=== PATIENT | female | born 1945 ===

== ENCOUNTER 2017-02-20 12:47 | Emergency (ER) | payer MEDICARE, MEDICAID ==
[2017-02-20 12:47] VITALS: BMI 29.2
[2017-02-20 13:07] VITALS: RESP 18; TEMP 98.3
--- NOTE | 2017-02-20 13:40 | C.PDOC ---
History Of Present Illness 71 yr old female presents to the ER accompanied by daughter, with complaints of left knee pain over the past 1 week and several days of swelling in the left calf. Daughter states the swelling has extended down to the ankle and is associated with pain. Pain is worsened with walking. Denies trauma, chest pain, SOB, weakness or numbness. Time Seen by Provider: 02/20/17 13:24 Chief Complaint (Nursing): Lower Extremity Problem/Injury History Per: Patient History/Exam Limitations: no limitations Onset/Duration Of Symptoms: Days Current Symptoms Are (Timing): Still Present Recent travel outside of the [place]: No Past Medical History Reviewed: Historical Data, Nursing Documentation, Vital Signs Vital Signs: Last Vital Signs Temp 98.3 F 02/20/17 14:51 Pulse 78 02/20/17 14:51 Resp 18 02/20/17 14:51 BP 128/80 02/20/17 14:51 Pulse Ox 95 02/20/17 15:39 - Medical History PMH: Asthma, Diabetes, HTN, Kidney Stones Surgical History: Appendectomy, Cholecystectomy Family History: States: No Known Family Hx - Social History Hx Tobacco Use: No Hx Alcohol Use: No Hx Substance Use: No - Immunization History Hx Tetanus Toxoid Vaccination: No Hx Influenza Vaccination: No Hx Pneumococcal Vaccination: No Review Of Systems Except As Marked, All Systems Reviewed And Found Negative. Cardiovascular: Negative for: Chest Pain Respiratory: Negative for: Shortness of Breath Musculoskeletal: Positive for: Other ((+) Left knee pain. Left calf swelling. ) Neurological: Negative for: Weakness, Numbness Physical Exam - Physical Exam Appears: Non-toxic, No Acute Distress Skin: Warm, Dry, No Rash Head: Atraumatic, Normacephalic Eye(s): bilateral: Normal Inspection, PERRL, EOMI Oral Mucosa: Moist Chest: Symmetrical, No Tenderness Cardiovascular: Rhythm Regular, No Murmur Respiratory: Normal Breath Sounds, No Rales, No Rhonchi, No Stridor, No Wheezing Extremity: Calf Tenderness (Left calf.), Capillary Refill (<2), Other (Left Calf mild swelling. Left knee is normal. ) Pulses: Left Dorsalis Pedis: Normal, Right Dorsalis Pedis: Normal Neurological/Psych: Oriented x3, Normal Speech, Normal Motor, Normal Sensation Gait: Steady ED Course And Treatment O2 Sat by Pulse Oximetry: 95 (RA ) Pulse Ox Interpretation: Normal - Other Rad X-Ray - Left Knee X-Ray: Viewed By Me, Read By Radiologist Interpretation: PROCEDURE: Left Knee Radiographs. HISTORY: COMPARISON: None available. FINDINGS: BONES: No acute displaced fracture. Osseous demineralization. Degenerative changes including tenting of the intercondylar notch. Suprapatellar enthesophyte. JOINTS: No dislocation. Medial compartment joint space narrowing. JOINT EFFUSION: No significant joint effusion. OTHER FINDINGS: Soft tissue protuberance anteriorly at the level of the superior patella. IMPRESSION: Soft tissue protuberance anteriorly at the level of the superior patella. Degenerative changes. Medial compartment joint space narrowing. Osseous demineralization. No acute displaced fracture, dislocation , or significant joint effusion identified. If symptoms persist or if there is continued clinical concern, x-ray follow-up in 7-10 days should be considered. Medical Decision Making Medical Decision Making: PLAN: * X-Ray - Left Knee * Venous Duplex Xray and Doppler ultrasound are negative. The patient is ambulatory in the ED with steady gait. Follow up with the medical doctor within 1-2 days. Return if worsened. Disposition - Disposition Referrals: Catracho Laws MD [Staff Provider] - Disposition: HOME/ ROUTINE Disposition Time: 14:46 Condition: GOOD Additional Instructions: Follow up with the medical doctor within 1-2 days. return if worsened. Prescriptions: Acetaminophen [Tylenol] 325 mg PO Q6 PRN #30 tab PRN Reason: Pain, Mild (1-3) Ibuprofen [Motrin] 1 tab PO TID PRN #30 tab PRN Reason: Pain Instructions: Knee Pain (ED) Forms: [employer] (Portuguese) Print Language: CROATIAN - Clinical Impression Clinical Impression: Knee pain, Muscle cramp - PA / ORTHOPHOTO TECH/DRAFTSMAN / Resident Statement MD/DO has reviewed & agrees with the documentation as recorded. - Scribe Statement The provider has reviewed the documentation as recorded by the Scribe Carrie Johnson All medical record entries made by the Pedroibmindi were at my direction and personally dictated by me. I have reviewed the chart and agree that the record accurately reflects my personal performance of the history, physical exam, medical decision making, and the department course for this patient. I have also personally directed, reviewed, and agree with the discharge instructions and disposition.
--- NOTE | 2017-02-20 14:18 | RAD ---
PROCEDURE: Left Knee Radiographs. HISTORY: COMPARISON: None available. FINDINGS: BONES: No acute displaced fracture. Osseous demineralization. Degenerative changes including tenting of the intercondylar notch. Suprapatellar enthesophyte. JOINTS: No dislocation. Medial compartment joint space narrowing. JOINT EFFUSION: No significant joint effusion. OTHER FINDINGS: Soft tissue protuberance anteriorly at the level of the superior patella. IMPRESSION: Soft tissue protuberance anteriorly at the level of the superior patella. Degenerative changes. Medial compartment joint space narrowing. Osseous demineralization. No acute displaced fracture, dislocation, or significant joint effusion identified. If symptoms persist or if there is continued clinical concern, x-ray follow-up in 7-10 days should be considered.
[2017-02-20 14:52] VITALS: BP 128/80; PULSE 78
[2017-02-20 14:55] VITALS: O2SAT 95
--- NOTE | 2017-02-24 10:40 | VASCLAB ---
PROCEDURE: Left Lower Extremity Venous Duplex Exam. HISTORY: calf swelling and pain PRIORS: None. TECHNIQUE: Left common femoral, femoral, popliteal and posterior tibial, peroneal and great saphenous veins were evaluated. Flow was assessed with color Doppler, compressibility, assessment of phasic flow and augmentation response. Report prepared by CHELSEA Catherine, RVT FINDINGS: LEFT: 1. Common Femoral Vein: 1.1. Compressibility - Fully compressible: Thrombus - None : Flow - Phasic: Augmentation -Normal: Reflux - None. 2. Femoral Vein: 2.1. Compressibility - Fully compressible: Thrombus - None: Flow - Phasic: Augmentation -Normal: Reflux - None. 3. Popliteal Vein: 3.1. Compressibility - Fully compressible: Thrombus - None: Flow - Phasic: Augmentation -Normal: Reflux - None. 4. Posterior Tibial Vein: 4.1. Compressibility - Fully compressible: Thrombus - None: Flow - Phasic: Augmentation -Normal: Reflux - None. 5. Peroneal Vein: 5.1. Compressibility - Fully compressible: Thrombus - None: Flow - Phasic: Augmentation -Normal: Reflux - None. 6. Great Saphenous Vein: 6.1. Compressibility - Fully compressible: Thrombus - None: Flow - Phasic: Augmentation - Normal: Reflux - None. OTHER FINDINGS: IMPRESSION: No evidence of deep or superficial vein thrombosis of the left lower extremity with excellent venous flow. Normal valve function noted of the left side. Normal venous flow noted in the right common femoral vein.
== END 2017-02-20 15:06 | disposition home or self-care (01) ==
LOC: C.ER 12:47
DX: M25.562 Pain in left knee (principal); R25.2 Cramp and spasm

== ENCOUNTER 2018-08-09 11:03 | Emergency (ER) | payer MEDICARE, MEDICAID ==
[2018-08-09 11:03] VITALS: BMI 29.2
[2018-08-09 11:13] VITALS: RESP 18; TEMP 98.5
--- NOTE | 2018-08-09 12:45 | C.PDOC ---
History Of Present Illness NEW ONSET LLQ PAIN SINCE LAST NIGHT. INTERMIT, OCC RADIATION RLQ. +NV. +LOOSE BM X 2. NO GI BLEED, FEVER. PSH APPY EXAM MILD DIST ABD +LLQ TEND SOFT NO R/G REMAINDER NEG NPO SINCE LAST NIGHT <Wanda Louis - Last Filed: 08/09/18 12:48> 72 year old female presents to ED with complaint of new onset left lower quadrant pain since last night. Patient describes the pain as intermittent, occasionally radiating to the right lower quadrant. She has also been experiencing nausea, vomiting , and 2 episodes of loose stool. Patient has a past surgical history of appendectomy.Patient has not eaten anything since last night. Patient denies GI bleed and fever. <Evie Burton - Last Filed: 08/09/18 16:46> <Wanda Louis - Last Filed: 08/09/18 12:48> History Per: Patient History/Exam Limitations: no limitations Onset/Duration Of Symptoms: Hrs, Intermittent Episodes, Sudden Onset Current Symptoms Are (Timing): Still Present Location Of Pain/Discomfort: RLQ, LLQ Quality Of Discomfort: "Pain" Associated Symptoms: Nausea, Vomiting, Other (diarrhea) <Evie Burton - Last Filed: 08/09/18 16:46> Time Seen by Provider: 08/09/18 12:42 Chief Complaint (Nursing): Abdominal Pain Past Medical History Vital Signs: Last Vital Signs Temp 98.5 F 08/09/18 11:09 Pulse 103 H 08/09/18 11:09 Resp 18 08/09/18 11:09 BP 101/64 08/09/18 11:09 Pulse Ox 97 08/09/18 11:09 - Medical History PMH: Asthma, Diabetes, HTN, Kidney Stones Denies: Chronic Kidney Disease Surgical History: Appendectomy Denies: Cholecystectomy (pt denies) Family History: States: Unknown Family Hx - Social History Hx Tobacco Use: No Hx Alcohol Use: No Hx Substance Use: No - Immunization History Hx Tetanus Toxoid Vaccination: No Hx Influenza Vaccination: Yes Hx Pneumococcal Vaccination: No <Wanda Louis - Last Filed: 08/09/18 12:48> Reviewed: Historical Data, Nursing Documentation, Vital Signs Vital Signs: Last Vital Signs Temp 98.5 F 08/09/18 11:09 Pulse 103 H 08/09/18 11:09 Resp 18 08/09/18 11:09 BP 101/64 08/09/18 11:09 Pulse Ox 97 08/09/18 12:48 <Evie Burton - Last Filed: 08/09/18 16:46> Review Of Systems Constitutional: Negative for: Fever, Chills, Weakness Cardiovascular: Negative for: Chest Pain, Palpitations Respiratory: Negative for: Cough, Shortness of Breath Gastrointestinal: Positive for: Nausea, Vomiting, Diarrhea Neurological: Negative for: Weakness, Numbness, Dizziness <Evie Burton - Last Filed: 08/09/18 16:46> Physical Exam - Physical Exam Appears: Non-toxic, Other (mild distress) Skin: Normal Color, Warm, Dry Head: Atraumatic, Normacephalic Neck: Normal ROM, Supple Chest: Symmetrical, No Deformity Cardiovascular: Rhythm Regular, No Murmur Respiratory: No Accessory Muscle Use, No Rales, No Rhonchi, No Wheezing Gastrointestinal/Abdominal: Soft, Tenderness (left lower quadrant), No Guarding, No Rebound Extremity: Capillary Refill (< 2 seconds) Extremity: Bilateral: Atraumatic, Normal Color And Temperature Pulses: Left Radial: Normal, Right Radial: Normal Neurological/Psych: Oriented x3, Normal Speech, Normal Cognition <Evie Burton - Last Filed: 08/09/18 16:46> ED Course And Treatment O2 Sat by Pulse Oximetry: 97 <Wanda Louis - Last Filed: 08/09/18 12:48> - Laboratory Results Result Diagrams: 08/09/18 13:08 08/09/18 13:08 Progress Note: Labs ordered with UA for patient. EKG and CT of abdomen/pelvis ordered for patient. 4:40PM- Patient resting comfortably, reportd abdominal kush n resolved and states she feels much better. On exam, (+) mild LLQ TTP without rebound/guarding. CT scan shows colitis, neg for diverticulitis. Patient states she would like to be discharged home, given Rxs for Cipro, Flagyl, Bentyl. She understands she should drink plenty of clear fluids, follow up with PMD in 1-2 days, and return to ED if symptoms worsen. <Evie Burton - Last Filed: 08/09/18 16:46> Progress - Data Reviewed Data Reviewed: Lab, Diagnostic imaging, EKG, Old records <Wanda Louis - Last Filed: 08/09/18 12:48> Disposition - Disposition Disposition Time: 13:00 <Wanda Louis - Last Filed: 08/09/18 12:48> Counseled Patient/Family Regarding: Studies Performed, Diagnosis, Need For Followup, Rx Given - Disposition Disposition Time: 16:45 <Evie Burton - Last Filed: 08/09/18 16:46> - Disposition Referrals: Catracho Laws MD [Staff Provider] - Disposition: HOME/ ROUTINE Condition: STABLE Additional Instructions: FOLLOW UP WITH YOUR DOCTOR IN 1-2 DAYS USE MEDICATIONS DIRECTED DRINK PLENT OF CLEAR FLUIDS RETURN TO EMERGENCY ROOM IF YOUR SYMPTOMS BECMOME WORSE SEGUIR CON CUI MDICO EN 1-2 MALONE UTILICE MEDICAMENTOS [facility] SE DIRIGE BEBER MUCHOS FLUIDOS CASSIE VUELVA A LA WHIT DE EMERGENCIA SI JAJA SNTOMAS SE HACEN PEOR Prescriptions: Ciprofloxacin [Cipro] 1 tab PO BID #14 tab Dicyclomine [Bentyl] 20 mg PO Q6 PRN #15 tab PRN Reason: ABDOMINAL CRAMPING metroNIDAZOLE [Flagyl] 500 mg PO TID #21 tab Naproxen 375 mg PO BID PRN #20 tablet PRN Reason: pain Instructions: Colitis (DC) Forms: [employer] (Portuguese) Print Language: ICELANDIC - Clinical Impression Clinical Impression: Abdominal pain, Vomiting, Colitis - Scribe Statement The provider has reviewed the documentation as recorded by the Scribe (Mary Franklin) All medical record entries made by the Scribe were at my direction and personally dictated by me. I have reviewed the chart and agree that the record accurately reflects my personal performance of the history, physical exam, medical decision making, and the department course for this patient. I have also personally directed, reviewed, and agree with the discharge instructions and disposition. <Evie Burton - Last Filed: 08/09/18 16:46> Physician Patient Turnover Patient Signed Over To: Evie Burton Handoff Comments: FU LABS, CT, EKG, DISPO <Wanda Louis - Last Filed: 08/09/18 12:48>
[2018-08-09] MEDS ORDERED: Sodium Chloride 0.9% 1,000 ML IV ONE (12:46)
[2018-08-09 13:15] LABS: BASO # 0.1 K/uL (0.0-0.2); BASO % 0.9 % (0.0-2.0); EOS # 0.1 K/uL (0.0-0.7); EOS % 0.5 % (0.0-4.0); HEMOGLOBIN 13.9 g/dL (11.0-16.0); LYMPH # 1.7 K/uL (1.0-4.3); LYMPH % 14.8 % (20.0-40.0); MEAN CELL VOLUME 85.6 fL (81.0-99.0); MEAN CORPUSCULAR HEMOGLOBIN 28.3 pg (27.0-31.0); MEAN CORPUSCULAR HGB CONC 33.1 g/dL (33.0-37.0); MEAN PLATELET VOLUME 8.4 fL (7.2-11.7); MONO # 0.5 K/uL (0.0-0.8); MONO % 4.6 % (0.0-10.0); NEUT # 9.1 K/uL (1.8-7.0); NEUT % 79.2 % (50.0-75.0); NRBC % 0.1 % (0.0-2.0); RBC 4.92 Mil/uL (3.80-5.20); RED CELL DISTRIBUTION WIDTH 13.6 % (11.5-14.5); WHITE BLOOD COUNT 11.4 K/uL (4.8-10.8)
[2018-08-09 13:17] LABS: SQUAMOUS EPITHIAL 5 /hpf (0-5); URINE BACTERIA RARE (<OCC); URINE BILIRUBIN NEGATIVE (NEGATIVE); URINE BLOOD NEGATIVE (NEGATIVE); URINE CLARITY Hazy (Clear); URINE COLOR Yellow (YELLOW); URINE GLUCOSE (UA) 3+ mg/dL (Normal); URINE LEUKOCYTE ESTERASE NEG Leu/uL (Negative); URINE PROTEIN NEGATIVE (NEGATIVE)
[2018-08-09 13:29] LABS: ALB/GLOB RATIO 1.4 (1.0-2.1); ALBUMIN 4.4 g/dL (3.5-5.0); ALT/SGPT 14 U/L (9-52); AST/SGOT 26 U/L (14-36); BLOOD UREA NITROGEN 14 mg/dL (7-17); CALCIUM 9.5 mg/dl (8.6-10.4); GFR NON-AFRICAN AMERICAN > 60; LIPASE 53 U/L (23-300)
[2018-08-09] MEDS ORDERED: Iodixanol 320 mg/ml 150 ml Bottle IV ONE (15:41)
[2018-08-09 16:10] VITALS: BP 101/66; PULSE 86; O2SAT 98
--- NOTE | 2018-08-09 16:34 | CT ---
Date of service: 08/09/2018 PROCEDURE: CT Abdomen and Pelvis with contrast HISTORY: abd pain LLQ COMPARISON: CT abdomen and pelvis without contrast performed 01/20/16 TECHNIQUE: Contrast dose: 100 mL Visipaque 320 IV Radiation dose: Total exam DLP = 262.24 mGy-cm. This CT exam was performed using one or more of the following dose reduction techniques: Automated exposure control, adjustment of the mA and/or kV according to patient size, and/or use of iterative reconstruction technique. FINDINGS: LOWER THORAX: No visible consolidation, pleural effusion, or pneumothorax. Small hiatal hernia/distal esophageal wall thickening. Evidence of gastroesophageal reflux. LIVER: Hypoattenuation of the liver compatible with hepatic steatosis. GALLBLADDER AND BILE DUCTS: Unremarkable. PANCREAS: Unremarkable. SPLEEN: Unremarkable. ADRENALS: Unremarkable. KIDNEYS AND URETERS: The kidneys enhance symmetrically. No hydronephrosis or obstructing calculus identified. Too small to characterize bilateral renal hypodensities; statistically likely cyst. VASCULATURE: Atherosclerotic calcifications of the aorta. Infrarenal abdominal aortic aneurysm measures approximately 2.3 x 2.8 x 3.4 cm (AP by transverse by CC). BOWEL: Stomach is nondistended. Lack of oral contrast limits evaluation for bowel pathology. Bowel loops appear within normal limits of caliber without evidence of obstruction. Marked wall thickening of the left colon/mucosal edema and associated inflammatory changes consistent with colitis (i.e. Infectious, inflammatory, ischemic). APPENDIX: No secondary signs of acute appendicitis. PERITONEUM: No significant free fluid. No definite free air. LYMPH NODES: No bulky adenopathy identified. BLADDER: Unremarkable. REPRODUCTIVE: Uterus is present. BONES: Mild degenerative changes. OTHER FINDINGS: None. IMPRESSION: Findings as described above appear consistent with colitis involving the left colon. Correlate clinically. Additional findings as above.
== END 2018-08-09 16:58 | disposition home or self-care (01) ==
LOC: C.ER 11:03
DX: K52.9 Noninfective gastroenteritis and colitis, unspecified (principal); R10.32 Left lower quadrant pain; R11.10 Vomiting, unspecified
CPT/HCPCS: 74177; 80053; 81001; 82948; 83690; 85025; 96361; 96374; 96375; 99285; J2270; J2405; J7030; Q9967

== ENCOUNTER 2018-11-12 12:23 | Outpatient (CLI) | payer MEDICARE, MEDICAID | END 2018-11-12 12:24 | disposition home or self-care (01) | LOC: C.MAMMO 12:23 | DX: Z12.31 Encounter for screening mammogram for malignant neoplasm of breast (principal); M81.0 Age-related osteoporosis without current pathological fracture ==

== ENCOUNTER 2018-11-24 09:44 | Outpatient (CLI) | payer MEDICARE, MEDICAID | END 2018-11-24 09:45 | disposition home or self-care (01) | LOC: C.MAMMO 09:45 | DX: R92.0 Mammographic microcalcification found on diagnostic imaging of breast (principal) ==